=== PATIENT | female | born 1945 | race Two or more races ===

== ENCOUNTER 2017-10-23 13:17 | Emergency (ER) | payer MEDICARE, OTHER ==
[~2017-10-23 13:17] MED LIST: CALC600T57 PO; HYDR10T OR
[2017-10-23 13:32] VITALS: BP 126/60
[2017-10-23 14:41] LABS: Urine Bacteria NONE SEEN /hpf (None Seen); Urine Blood Negative /uL (Negative); Urine Mucus FEW (None Seen); Urine Specific Gravity 1.022 (1.001-1.035); Urine WBC 1 /hpf (0 - 5)
[2017-10-23 18:17] LABS: Basophils # (auto) 0 uL; Basophils % (auto) 0.5 % (0.0-2.0); Eosinophils # (auto) 0.1 uL; Eosinophils % (auto) 1.4 % (0.0-7.0); Hematocrit 43.9 % (36.0-46.0); Lymphocytes # (auto) 1.3 uL; Lymphocytes % (auto) 15.7 % (10.0-50.0); Mean Corpuscular Hgb Conc. 34.2 g/dL (32.0-36.0); Mean Corpuscular Volume 99.5 fL (80.0-100.0); Monocytes # (auto) 1.1 uL; Monocytes % (auto) 12.5 % (0.0-12.0); Neutrophils # (auto) 5.9 uL; Neutrophils % (auto) 69.9 % (37.0-80.0); Platelet Count (auto) 283 10^3/uL (140-450); Red Blood Cells 4.41 10^6/uL (4.0-5.20); White Blood Cell 8.5 10^3/uL (4.4-10.8)
[2017-10-23 18:42] LABS: Albumin 3.4 g/dL (3.4-5.0); BUN/Creatinine Ratio 21.4; Bilirubin, Total 0.2 mg/dL (0.2-1.0); Calcium 8.9 mg/dL (8.5-10.1); Potassium 4.2 mmol/L (3.5-5.1); Total Protein 8.8 g/dL (6.4-8.2)
== END 2017-10-23 22:38 | disposition home or self-care (01) ==
LOC: ER 13:17
DX: S39.011A Strain of muscle, fascia and tendon of abdomen, initial encounter (principal); J45.909 Unspecified asthma, uncomplicated; I10 Essential (primary) hypertension; E07.9 Disorder of thyroid, unspecified; G89.29 Other chronic pain; M54.9 Dorsalgia, unspecified; Z87.440 Personal history of urinary (tract) infections; Z90.49 Acquired absence of other specified parts of digestive tract; X58.XXXA Exposure to other specified factors, initial encounter; Y93.89 Activity, other specified; Y92.89 Other specified places as the place of occurrence of the external cause; Y99.8 Other external cause status; Z88.1 Allergy status to other antibiotic agents; Z88.6 Allergy status to analgesic agent
CPT/HCPCS: 36415; 80053; 81001; 85025

== ENCOUNTER 2018-01-15 12:52 | Emergency (ER) | payer MEDICARE, OTHER | END 2018-01-15 13:23 | disposition left against medical advice (07) | LOC: ER 12:52 | DX: M54.9 Dorsalgia, unspecified (principal); Z53.21 Procedure and treatment not carried out due to patient leaving prior to being seen by health care provider ==

== ENCOUNTER 2019-10-23 12:32 | Emergency (ER) | payer MEDICARE, OTHER ==
[~2019-10-23] VITALS: Ht 147.3 cm; Wt 59.0 kg
[2019-10-23 12:42] VITALS: BP 95/53
[2019-10-23 13:26] LABS: Basophils # (auto) 0 uL; Basophils % (auto) 0.7 % (0.0-2.0); Eosinophils # (auto) 0 uL; Eosinophils % (auto) 0.7 % (0.0-7.0); Hematocrit 40.5 % (36.0-46.0); Hemoglobin 13.7 g/dL (12.2-16.2); Lymphocytes # (auto) 1.2 uL; Lymphocytes % (auto) 16.3 % (10.0-50.0); Mean Corpuscular Hemoglobin 33.4 pg (28.0-32.0); Mean Corpuscular Hgb Conc. 33.8 g/dL (32.0-36.0); Mean Corpuscular Volume 98.9 fL (80.0-100.0); Monocytes # (auto) 0.7 uL; Monocytes % (auto) 9.3 % (0.0-12.0); Neutrophils # (auto) 5.5 uL; Nucleated Red Blood Cells % 0.1 %; Platelet Count (auto) 242 10^3/uL (140-450); Red Cell Distribution Width 14.8 % (11.8-14.3); White Blood Cell 7.5 10^3/uL (4.4-10.8)
[2019-10-23 13:37] LABS: Alanine Aminotransferase 31 U/L (13-56); Albumin 2.9 g/dL (3.4-5.0); Anion Gap 10 (5-15); Aspartate Aminotransferase 24 U/L (15-37); Blood Urea Nitrogen 20 mg/dL (7-18); Calcium 8.3 mg/dL (8.5-10.1); Carbon Dioxide 22 mmol/L (21-32); Chloride 105 mmol/L (98-107); GFR African American 90 mL/min; GFR Non-African American 74 mL/min; Glucose 113 mg/dL (74-106); Potassium 3.8 mmol/L (3.5-5.1); Sodium 137 mmol/L (136-145)
[2019-10-23 13:42] LABS: Alkaline Phosphatase 213 U/L (45-117); Bilirubin, Total 0.4 mg/dL (0.2-1.0); INR 1.07 (0.9-1.15); Partial Thromboplastin Time 24.9 sec (23.64-32.05); Total Protein 6.9 g/dL (6.4-8.2)
== END 2019-10-23 15:00 | disposition left against medical advice (07) ==
LOC: EDBD 12:32 → ER 12:32
DX: R07.89 Other chest pain (principal); Z53.21 Procedure and treatment not carried out due to patient leaving prior to being seen by health care provider
CPT/HCPCS: 36415; 80053; 83880; 84484; 85025; 85610; 85730